=== PATIENT | male | born 1965 | race Caucasian/White ===

== ENCOUNTER 2017-02-22 16:53 | Inpatient (IN) | payer OTHER ==
[~2017-02-22] VITALS: Ht 152.4 cm; Wt 63.0 kg
[~2017-02-22 16:53] MED LIST: AMLODIPINE BESYL5 M1 PO; COL100 PO; ECO81 PO; LIPI20 PO; NOR10 PO; NORCO1 TA2 PO; OMEPRAZOLE40 M1 PO; REN800 PO; RENVELA800 M1 PO; ZES5 PO; ZOFRAN4 M2 PO
[2017-02-22 18:10] LABS: ALBUMIN 4.1 g/dL (3.4-5.0); BILIRUBIN TOTAL 0.4 mg/dL (0.20-1.00); CALCIUM 9.4 mg/dL (8.5-10.1); CARBON DIOXIDE 31.3 mmol/L (21-32); POTASSIUM SERUM 4.8 mmol/L (3.5-5.1); TOTAL PROTEIN, SERUM 7.6 g/dL (6.4-8.2)
[2017-02-22 18:16] LABS: BASOPHIL % 0.6 % (0-2); CREATININE SERUM 9.2 mg/dL (0.7-1.3); PLATELET COUNT 158 x10^3mcL (130-400); RED CELL DISTRIBUTION WIDTH 14.4 % (11.5-14.5)
[2017-02-22] MEDS ORDERED: TOPROL XL25 MG PO (19:18)
[2017-02-22] MEDS ORDERED: HYDRALAZINE HCL25 MG PO (19:19)
[2017-02-22] MEDS ORDERED: RENVELA800 M1 PO (19:20)
[2017-02-22] MEDS ORDERED: LINZESS145 MC1 PO (19:21)
[2017-02-22] MEDS ORDERED: RENA-VITE1 TAB (19:21)
[2017-02-22 19:39] LABS: MAGNESIUM 2.4 mg/dL (1.8-2.4); PHOSPHOROUS 3.5 mg/dL (2.5-4.9)
[2017-02-22 19:48] LABS: FREE T4 1.34 ng/dL (0.76-1.46); FREE THYROXINE INDEX 2.9 ug/dL (1.4-4.5); T4(THYROXINE) 8.4 ug/dL (4.7-13.3)
[2017-02-22 19:55] VITALS: BP 174/92
[2017-02-22] MEDS ORDERED: LOSARTAN POTASS50 M1 PO (20:30)
[2017-02-22 21:06] LABS: T3 TOTAL 0.85 ng/mL
[2017-02-22 21:47] VITALS: BP 189/93
[2017-02-22 22:29] VITALS: BP 178/87
[2017-02-22 23:58] VITALS: BP 153/74
[2017-02-23] VITALS (8 sets, daily range): BP systolic 140–199; BP diastolic 74–98
[2017-02-23 06:10] LABS: microscopic required? YES; urine erythrocyte 1+ (NEGATIVE)
[2017-02-23 06:22] LABS: AMPHETAMINE QUAL UR NONE DETECTED (NEG <=1000)
[2017-02-23 07:15] LABS: BASOPHIL % 0.8 % (0-2); PLATELET COUNT 174 x10^3mcL (130-400)
[2017-02-23 07:17] LABS: RED CELL DISTRIBUTION WIDTH 14.6 % (11.5-14.5)
[2017-02-23 07:29] LABS: CALCIUM 8.9 mg/dL (8.5-10.1); CARBON DIOXIDE 28.2 mmol/L (21-32); MAGNESIUM 2.4 mg/dL (1.8-2.4); PHOSPHOROUS 3.9 mg/dL (2.5-4.9); POTASSIUM SERUM 4.7 mmol/L (3.5-5.1)
[2017-02-23 07:56] LABS: CREATININE SERUM 10.6 mg/dL (0.7-1.3)
[2017-02-24] VITALS (7 sets, daily range): BP systolic 132–196; BP diastolic 75–94
[2017-02-24 06:54] LABS: BASOPHIL % 0.8 % (0-2); PLATELET COUNT 188 x10^3mcL (130-400); RED CELL DISTRIBUTION WIDTH 14.3 % (11.5-14.5)
[2017-02-24 07:15] LABS: CALCIUM 9.1 mg/dL (8.5-10.1); CARBON DIOXIDE 31.8 mmol/L (21-32); MAGNESIUM 2.1 mg/dL (1.8-2.4); PHOSPHOROUS 5.2 mg/dL (2.5-4.9); POTASSIUM SERUM 4.7 mmol/L (3.5-5.1)
[2017-02-24 07:29] LABS: CREATININE SERUM 8.2 mg/dL (0.7-1.3)
[2017-02-25 05:45] VITALS: BP 175/82
[2017-02-25 06:43] VITALS: BP 136/73
[2017-02-25 08:02] LABS: CALCIUM 8.6 mg/dL (8.5-10.1); CARBON DIOXIDE 27.7 mmol/L (21-32); MAGNESIUM 2.3 mg/dL (1.8-2.4); PHOSPHOROUS 4.9 mg/dL (2.5-4.9); POTASSIUM SERUM 4.7 mmol/L (3.5-5.1)
[2017-02-25 09:08] LABS: PLATELET COUNT 213 x10^3mcL (130-400); RED CELL DISTRIBUTION WIDTH 13.2 % (11.5-14.5)
[2017-02-25 09:09] LABS: BASOPHIL % 3.9 % (0-2)
[2017-02-25 09:53] VITALS: BP 167/78
[2017-02-25 13:31] VITALS: BP 151/70
[2017-02-25 15:12] VITALS: BP 151/70
[2017-02-25 18:03] VITALS: BP 134/84
[2017-02-25] MEDS ORDERED: MECLIZINE HCL12.5 MG PO (18:12)
[2017-02-25] MEDS ORDERED: NOR10 PO (18:13)
[2017-02-25] MEDS ORDERED: COZAAR100 MG PO (18:14)
[2017-02-25] MEDS ORDERED: REN800 PO (18:14)
[2017-02-25] MEDS ORDERED: BG FS (18:15)
[2017-02-25] MEDS ORDERED: ECO81 PO (18:15)
[2017-02-25] MEDS ORDERED: TOPROL XL100 MG PO (18:16)
[2017-02-25] MEDS ORDERED: LIPI20 PO (18:17)
[2017-02-25] MEDS ORDERED: APR25 PO (18:17)
[2017-02-25] MEDS ORDERED: ZOF4 PO (18:18)
== END 2017-02-25 18:50 | disposition home or self-care (01) | DRG 77 ==
LOC: ED 16:53 → DU 18:59
PROVIDERS: Emergency Medicine; Family Medicine; ADMIT Family Medicine
DX: I67.4 Hypertensive encephalopathy (principal); N17.0 Acute kidney failure with tubular necrosis; N18.6 End stage renal disease; D68.69 Other thrombophilia; I13.11 Hypertensive heart and chronic kidney disease without heart failure, with stage 5 chronic kidney disease, or end stage renal disease; E87.1 Hypo-osmolality and hyponatremia; I11.9 Hypertensive heart disease without heart failure; E11.51 Type 2 diabetes mellitus with diabetic peripheral angiopathy without gangrene; E87.8 Other disorders of electrolyte and fluid balance, not elsewhere classified; K21.9 Gastro-esophageal reflux disease without esophagitis; Z99.2 Dependence on renal dialysis; G90.9 Disorder of the autonomic nervous system, unspecified
CPT/HCPCS: 82962; 83880; 84439; J0360; J1940; J2270; J2405; J3490; J7030; J8597; Q0092